=== PATIENT | male | born 1940 | race Caucasian/White ===

== ENCOUNTER → 2016-04-20 | Outpatient (CLI) | payer MEDICARE, OTHER ==
--- NOTE | 2016-04-20 12:47 | RADIOLOGY REPORT PS360 ---
CHEST(2 VIEWS-NOT PORTABLE) HISTORY: CHRONIC BRONCHITIS COMPARISON: 6-11 FINDINGS: Unremarkable cardiovascular structures. Hyperinflation with attenuation of upper for pulmonary vessels consistent with obstructive chronic bronchitis. Calcified granuloma right lung base. No lobar consolidation or collapse. Old right clavicular fracture. 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 No acute finding with no significant change from 6-11
== END ==
LOC: RAD 10:16
DX: J41.0 Simple chronic bronchitis (principal)